=== PATIENT | female | born 1950 | race Caucasian/White ===

== ENCOUNTER 2021-12-01 19:44 | Emergency (ER) | payer MEDICARE, SELFPAY ==
--- NOTE | ~2021-12-01 | CT_ITS ---
EXAMINATION: CT HEAD WITHOUT CONTRAST CT CERVICAL SPINE WITHOUT CONTRAST CLINICAL INFORMATION: Multiple falls COMPARISON: None. TECHNIQUE: Multidetector CT imaging of the head and cervical spine was performed without the use of intravenous contrast. Multiplanar reformats are reviewed. This CT examination was performed using dose optimization techniques as appropriate, variously including the following: *Automated exposure control *Adjustment of mA and/or kV according to patient size (this includes techniques or standardized protocols for targeted exams where dose is matched to indication/reason for exam; i.e. extremities or head) *Use of iterative reconstruction technique DLP: 921c mGy-cm. FINDINGS: There is no evidence of acute intracranial hemorrhage or territorial infarction. No abnormal mass effect or midline shift is seen. [place] to white matter differentiation is well preserved. No extra-axial fluid collections are identified. Mild generalized brain parenchymal volume loss. No this portion ventriculomegaly. Mild patchy subcortical and periventricular white matter low-attenuation changes statistically relates to small vessel ischemic disease. There are what likely represent a few small calcified meningiomas along the bilateral convexities. Cavernous carotid calcifications. The osseous structures and soft tissues are normal. The mastoid air cells and visualized portions of the paranasal sinuses are well-aerated. Atlantooccipital alignment is maintained. The vertebral bodies and posterior elements align normally. No acute fracture or subluxation. Vertebral body heights are maintained. Small endplate osteophytes present at C4-C5 and C5-C6 with accompanying loss of disc space height and uncovertebral arthrosis. Facet arthropathy throughout cervical spine, most notably at C2-C3, worse on the right associated with 3 mm anterolisthesis of C2 on C3. The paraspinal soft tissues are unremarkable. The imaged lung apices are clear CT/CT cervical spine wo IV con IMPRESSION: No acute intracranial pathology. No cervical spine fracture or malalignment.
--- NOTE | ~2021-12-01 | XR_ITS ---
EXAMINATION: XR HIP, LEFT CLINICAL INFORMATION: Multiple falls COMPARISON: None TECHNIQUE: Frontal view the pelvis with 2 views of the left hip. FINDINGS: Femoral heads are well-seated within their respected acetabula. I do not appreciate any cortical disruption or trabecular irregularity to suggest underlying fracture. Bowel gas pattern unremarkable. Mild degenerative changes in the pubic symphysis and lower lumbar spine. XR/XR hip LT w PEL1V IMPRESSION: No acute fracture or dislocation.
[2021-12-01 20:26] VITALS: BP 126/59; PULSE 68; RESP 18; TEMP 36.9; O2SAT 98
--- NOTE | 2021-12-01 20:33 | ED_ITS ---
HPI - General Adult General Chief complaint: Altered Mental Status Stated complaint: FALL DURING LONG WALK TODAY,H/O DEMENTIA Time Seen by Provider: 12/01/21 20:23 Source: patient Mode of arrival: ambulatory Limitations: no limitations History of Present Illness HPI narrative: Patient comes in the emergency room by EMS. Patient has history of dementia, lives with her who is her healthcare daycare. Patient states that she fell multiple times today. Patient complaining of left hip pain. Patient is alert and oriented x1 at baseline. According to EMS, the family reports that the patient left the home at 11:00, and at 19:00, patient showed up at her neighbor's house called EMS. It is unknown if patient is on blood thinners. Related Data Allergies Allergy/AdvReac Type Severity Reaction Status Date / Time Unable to Assess Allergy Unverified 12/01/21 20:31 Review of Systems Review of Systems: Constitutional : Denies fever ENT/Mouth : Denies ear pain, denies sore throat Eyes: Denies eye pain Cardiovascular : No Chest Pain, No SOB, No Dyspnea on Exertion, no palpitations Respiratory : Denies dyspnea, no cough Gastrointestinal : No abdominal pain Genitourinary no dysuria Musculoskeletal : Complaining of left hip pain Skin : No Skin Lesions, No rash Neuro : No Weakness, No Numbness, No Paresthesias, No Loss of Consciousness, No Dizziness, No Headache Psych : Denies SI or HI Heme/Lymph: No Bruising Endocrine : No Polyuria, No Polydipsia, No Temperature Intolerance [facility] Past Medical History Medical History (Updated 12/02/21 @ 02:10 by Daria Loyola MD) Dementia Social History Social History Alcohol intake: never Patient Tobacco Use Status: Never used Tobacco Use of substances other than those prescribed or required for medical reasons: No Advance Directives: No Advance Directives Information Provided: No Physical Exam ED Vital Signs: Vital Signs - 24 hr 12/01/21 20:26 12/02/21 00:22 Temperature 98.4 F 98.1 F Pulse Rate 68 64 Respiratory Rate 18 12 Blood Pressure 126/59 L 123/55 L Pulse Oximetry 98 99 BMI result Body Mass Index 21.2 Const Other: Appearance: Alert. Oriented X1. No acute distress. Patient very talkative but does not make sense, Eyes: Pupils equal, round and reactive to light. ENT: Pharynx normal. Neck: Normal inspection. Neck supple. No lymph nodes noted. No crepitus CVS: Normal heart rate and rhythm. Pulses normal. Normal S1 and S2 Respiratory: No respiratory distress. Breath sounds normal. No Wheezing. No rales Abdomen: Soft and nontender. No rigidity. No distention. Skin: Skin warm and dry. Normal skin color. Normal skin turgor. Extremities: No lower extremity edema patient has full range of motion at the hips, knees and ankles Neuro: Oriented X 1. Moving all extremities. No slurred speech. CN 2 through 12 grossly intact Psych: calm, cooperative Course Course Course Narrative: Patient had a few low blood pressure reads. However, it was noted that the patient's cuff for blood pressure is too big for her. The correct cuff was put in patient's arm, blood pressure 124 systolic. Patient's oxygen saturation remained at 90-92% on 15 L on a non-rebreather. Patient was switched to high-flow, 40 L at 40%, oxygen saturation 92%. Patient seems comfortable. I discussed the CT scan with the patient and her . No acute findings. The feels comfortable taking the patient home. Case Management/Physical therapy offered, patient's who is the healthcare proxy decline. Medical Decision Making Lab Data Result diagrams: 12/01/21 21:21 12/01/21 21:21 Labs: Lab Results 12/01/21 12/01/21 12/01/21 Range/Units 21:21 21:21 21:21 WBC 12.6 H (4.8-10.8) X10*3/uL RBC 4.15 L (4.20-5.50) X10*6/uL Hgb 12.5 (12.0-16.0) g/dl Hct 38.2 (37.0-47.0) % MCV 92.0 (80.0-98.0) fL MCH 30.1 (27.0-33.0) pg MCHC 32.7 (31.0-35.0) g/dl RDW 15.0 (11.0-16.0) % Plt Count 239 (160-400) X10*3/uL MPV 11.3 (9.4-12.3) fL Immature Gran % (Auto) 0.3 (0.0-0.4) % Neut % (Auto) 77.0 H (45-73) % Lymph % (Auto) 12.6 L (20-40) % [place] % (Auto) 9.6 (2-11) % Eos % (Auto) 0.1 (0-4) % Baso % (Auto) 0.4 (0-2) % Lymph # (Auto) 1.6 (1.2-4.9) X10*3/uL [place] # (Auto) 1.2 (0.1-1.2) X10*3/uL Eos # (Auto) 0.0 (0.0-0.4) X10*3/uL Baso # (Auto) 0.1 (0.0-0.2) X10*3/uL Abs Immat Gran (auto) 0.04 H (0.00-0.03) X10*3/uL Absolute Neuts (auto) 9.7 H (2.0-8.3) x10*3/uL Absolute Nucleated RBC 0.000 (0.0-0.012) X10*3/uL Nucleated RBC % (auto) 0.0 (0.0-0.2) /100WBC PT (9.9-13.0) SEC INR (0.9-1.1) Sodium 141 (135-145) mmol/L Potassium 4.5 (3.3-5.1) mmol/L Chloride 106 (96-108) mmol/L Carbon Dioxide 25 (22-29) mmol/L Anion Gap 15 (12-20) BUN 20 H (9-16) mg/dL Creatinine 0.91 (0.5-1.4) mg/dL Estim Creat Clear Calc 41.4 Estimated GFR 60 Random Glucose 91 (60-115) mg/dL Calcium 9.9 (8.4-10.2) mg/dL Total Bilirubin 0.7 (0.0-1.0) mg/dL Direct Bilirubin 0.2 (0.0-0.5) mg/dL AST 36 H (5-31) U/L ALT 41 H (0-31) U/L Alkaline Phosphatase 129 H (39-117) U/L Troponin I High Sens 10.1 (<3.5-17.0) ng/L Total Protein 6.6 (6.5-8.0) g/dL Albumin 4.1 (3.5-5.0) g/dL Urine Color Urine Appearance Urine pH (5.0-8.0) Ur Specific [place] (1.005-1.025) Urine Protein (NEG-TRACE) MG/DL Urine Glucose (UA) (NEG) MG/DL Urine Ketones (NEG) MG/DL Urine Blood (NEG) Urine Nitrite (NEG) Ur Leukocyte Esterase (NEG) COVID-19 (RUTHY) (Negative) COVID-19 Clin Com 12/01/21 12/01/21 12/01/21 Range/Units 21:21 21:21 21:40 WBC (4.8-10.8) X10*3/uL RBC (4.20-5.50) X10*6/uL Hgb (12.0-16.0) g/dl Hct (37.0-47.0) % MCV (80.0-98.0) fL MCH (27.0-33.0) pg MCHC (31.0-35.0) g/dl RDW (11.0-16.0) % Plt Count (160-400) X10*3/uL MPV (9.4-12.3) fL Immature Gran % (Auto) (0.0-0.4) % Neut % (Auto) (45-73) % Lymph % (Auto) (20-40) % [place] % (Auto) (2-11) % Eos % (Auto) (0-4) % Baso % (Auto) (0-2) % Lymph # (Auto) (1.2-4.9) X10*3/uL [place] # (Auto) (0.1-1.2) X10*3/uL Eos # (Auto) (0.0-0.4) X10*3/uL Baso # (Auto) (0.0-0.2) X10*3/uL Abs Immat Gran (auto) (0.00-0.03) X10*3/uL Absolute Neuts (auto) (2.0-8.3) x10*3/uL Absolute Nucleated RBC (0.0-0.012) X10*3/uL Nucleated RBC % (auto) (0.0-0.2) /100WBC PT 10.6 (9.9-13.0) SEC INR 0.9 (0.9-1.1) Sodium (135-145) mmol/L Potassium (3.3-5.1) mmol/L Chloride (96-108) mmol/L Carbon Dioxide (22-29) mmol/L Anion Gap (12-20) BUN (9-16) mg/dL Creatinine (0.5-1.4) mg/dL Estim Creat Clear Calc Estimated GFR Random Glucose (60-115) mg/dL Calcium (8.4-10.2) mg/dL Total Bilirubin (0.0-1.0) mg/dL Direct Bilirubin (0.0-0.5) mg/dL AST (5-31) U/L ALT (0-31) U/L Alkaline Phosphatase (39-117) U/L Troponin I High Sens (<3.5-17.0) ng/L Total Protein (6.5-8.0) g/dL Albumin (3.5-5.0) g/dL Urine Color YELLOW Urine Appearance HAZY Urine pH 7.5 (5.0-8.0) Ur Specific [place] 1.020 (1.005-1.025) Urine Protein TRACE (NEG-TRACE) MG/DL Urine Glucose (UA) NEG (NEG) MG/DL Urine Ketones NEG (NEG) MG/DL Urine Blood NEG (NEG) Urine Nitrite NEG (NEG) Ur Leukocyte Esterase NEG (NEG) COVID-19 (RUTHY) Negative (Negative) COVID-19 Clin Com See Note Imaging Data Hip x-ray: Radiologist's impression: FINDINGS: Femoral heads are well-seated within their respected acetabula. I do not appreciate any cortical disruption or trabecular irregularity to suggest underlying fracture. Bowel gas pattern unremarkable. Mild degenerative changes in the pubic symphysis and lower lumbar spine. XR/XR hip LT w PEL1V IMPRESSION: No acute fracture or dislocation. Head and cervical spine CT: Radiologist's impression: FINDINGS: There is no evidence of acute intracranial hemorrhage or territorial infarction. No abnormal mass effect or midline shift is seen. R[place] to white matter differentiation is well preserved. No extra-axial fluid collections are identified. Mild generalized brain parenchymal volume loss. No this portion ventriculomegaly. Mild patchy subcortical and periventricular white matter low-attenuation changes statistically relates to small vessel ischemic disease. There are what likely represent a few small calcified meningiomas along the bilateral convexities. Cavernous carotid calcifications. The osseous structures and soft tissues are normal. The mastoid air cells and visualized portions of the paranasal sinuses are well-aerated. Atlantooccipital alignment is maintained. The vertebral bodies and posterior elements align normally. No acute fracture or subluxation. Vertebral body heights are maintained. Small endplate osteophytes present at C4-C5 and C5-C6 with accompanying loss of disc space height and uncovertebral arthrosis. Facet arthropathy throughout cervical spine, most notably at C2-C3, worse on the right associated with 3 mm anterolisthesis of C2 on C3. The paraspinal soft tissues are unremarkable. The imaged lung apices are clear ? CT/CT cervical spine wo con IMPRESSION: No acute intracranial pathology. No cervical spine fracture or malalignment. Discharge Plan Discharge Clinical Impression: Dementia Patient Disposition: Home, Self-Care Instructions: Dementia (ED) Additional Instructions: Please follow-up with your primary care physician tomorrow. If you have any worsening or new symptoms, please return to the emergency room or call 911
[2021-12-01 20:39] VITALS: BP 130/70; PULSE 76; O2SAT 98; BMI 21.2
--- NOTE | 2021-12-01 20:55 | ECG_ITS ---
Test Reason : FALL Blood Pressure : / mmHG Vent. Rate : 067 BPM Atrial Rate : 067 BPM P-R Int : 172 ms QRS Dur : 070 ms QT Int : 436 ms P-R-T Axes : 068 021 064 degrees QTc Int : 460 ms Normal sinus rhythm Normal ECG No previous ECGs available Referred By: Daria Loyola Electronically Signed By:
[2021-12-01 21:26] LABS: MANUAL DIFF FLAG NO
[2021-12-01 21:28] LABS: Basophils Absolute Auto 0.1 X10*3/uL (0.0-0.2); Basophils Percent Auto 0.4 % (0-2); Eosinophils Percent Auto 0.1 % (0-4); Hematocrit 38.2 % (37.0-47.0); Hemoglobin 12.5 g/dl (12.0-16.0); Imm Gran Abs Auto 0.04 X10*3/uL (0.00-0.03); Imm Gran Pct Auto 0.3 % (0.0-0.4); Lymphocytes Absolute Auto 1.6 X10*3/uL (1.2-4.9); Lymphocytes Percent Auto 12.6 % (20-40); Mean Corpuscular HGB Conc 32.7 g/dl (31.0-35.0); Mean Corpuscular Hemoglobin 30.1 pg (27.0-33.0); Mean Platelet Volume 11.3 fL (9.4-12.3); Monocytes Absolute Auto 1.2 X10*3/uL (0.1-1.2); Monocytes Percent Auto 9.6 % (2-11); Neutrophils Absolute Auto 9.7 x10*3/uL (2.0-8.3); Platelet Count 239 X10*3/uL (160-400); Red Blood Count 4.15 X10*6/uL (4.20-5.50); White Blood Count 12.6 X10*3/uL (4.8-10.8)
[2021-12-01 21:35] LABS: INTERNATIONAL NORM RATIO 0.9 (0.9-1.1); Prothrombin Time 10.6 SEC (9.9-13.0)
[2021-12-01 21:41] LABS: COVID-19 Test Negative (Negative)
[2021-12-01 21:47] LABS: Appearance Urine HAZY; Color Urine YELLOW; Glucose Urine UA NEG (NEG); Leukocyte Esterase Urine NEG (NEG); Nitrite Urine NEG (NEG); PH 7.5 (5.0-8.0); Urine Blood NEG (NEG); Urine Ketones NEG (NEG); Urine Protein TRACE MG/DL (NEG-TRACE)
[2021-12-01 21:50] LABS: Alanine Aminotransferase 41 U/L (0-31); Albumin Level 4.1 g/dL (3.5-5.0); Alkaline Phosphatase 129 U/L (39-117); Anion Gap 15 (12-20); Aspartate Amino Transferase 36 U/L (5-31); Bilirubin Direct 0.2 mg/dL (0.0-0.5); Bilirubin Total 0.7 mg/dL (0.0-1.0); Blood Urea Nitrogen 20 mg/dL (9-16); Calcium 9.9 mg/dL (8.4-10.2); Carbon Dioxide 25 mmol/L (22-29); Chloride 106 mmol/L (96-108); Creatinine Clr Calc Pharmacy 41.4; Estimated Glomerular Filt Rate 60; Glucose Random 91 mg/dL (60-115); Potassium 4.5 mmol/L (3.3-5.1); Sodium 141 mmol/L (135-145); Total Protein 6.6 g/dL (6.5-8.0)
[2021-12-01 21:54] LABS: Troponin-I High Sensitivity 10.1 ng/L (<3.5-17.0)
[2021-12-02 00:22] VITALS: BP 123/55; PULSE 64; RESP 12; TEMP 36.7; O2SAT 99
[2021-12-02] MEDS: cefTRIAXone sodium 1 GM in 0.9 % Sodium Chloride 50 ML IV (02:23)
[2021-12-02] MEDS: Azithromycin 500 MG in 0.9 % Sodium Chloride 250 ML 125 MG IV (02:27)
[2021-12-02 02:31] VITALS: BP 119/57; PULSE 63; RESP 14; O2SAT 100
[2021-12-02 03:35] VITALS: BP 110/63; PULSE 65; RESP 16; O2SAT 98
== END 2021-12-02 03:46 | disposition home or self-care (01) ==
PROVIDERS: Emergency Provider Emergency Medicine; PCP Family Medicine
DX: F03.90 Unspecified dementia, unspecified severity, without behavioral disturbance, psychotic disturbance, mood disturbance, and anxiety (principal); R51.9 Headache, unspecified; M54.2 Cervicalgia; M25.552 Pain in left hip; Z20.822 Contact with and (suspected) exposure to COVID-19; Z79.899 Other long term (current) drug therapy
CPT/HCPCS: 36415; 70450; 72125; 73502; 80048; 80076; 81003; 84484; 85025; 85610; 87635; 93005; 96365; 96367; 99284; 99285; J0456; J0696

== ENCOUNTER 2022-02-01 18:30 | Emergency (ER) | payer MEDICARE, SELFPAY ==
--- NOTE | ~2022-02-01 | CT_ITS ---
EXAMINATION: CT BRAIN AND CT CERVICAL SPINE WITHOUT CONTRAST. CLINICAL INFORMATION: Status post fall. Pain COMPARISON: None TECHNIQUE: 5 mm thin axial and reformatted 2 mm thin sagittal and coronal images of brain were obtained. Subsequently axial 3 mm thin and reformatted 2 mm thin sagittal coronal images of cervical spine were obtained. DLP [id number] FINDINGS: Brain: There is no acute intra-axial, extra-axial bleed, masses or midline shift. There is no acute infarction evolution. The lateral ventricles are symmetrical in size and configuration with mild enlargement. Mild periventricular hypodensity seen in both cerebral hemispheres. There is anterior midline falx calcification. No abnormality seen in the posterior fossa. Bone windows reveal no calvarial abnormality. Bilateral paranasal sinuses and mastoid air cells are well-aerated. Cervical spine: There is a normal cervical lordosis with grade 1 retrolisthesis C5 over C6. Rest of ureteral or alignment is normal. There is loss of C4-C5 and C5-C6 disc heights. There is mild narrowing of bilateral C5-C6 and left C4-C5 neural foramina from uncovertebral hypertrophic changes. The craniovertebral junction and the C1-C2 alignment is normal. There is no visible acute fracture, dislocation or subluxation seen.. The prevertebral and paravertebral soft tissues are normal. The airway is widely patent. CT/CT cervical spine wo con IMPRESSION: No acute intracranial process seen. There is age-related cerebral volume loss. There is grade 1 retrolisthesis C5 over C6 with degenerative disc changes C4-C5, C5-C6 disc levels and mild ventral spondylosis at the C4-C5 disc level. Mild bilateral narrowing of C5-C6 and left C4-C5 neural foramina is noted. No acute fracture or dislocation seen.
[2022-02-01 18:45] VITALS: BP 101/53; BP 111/53; PULSE 61; PULSE 69; RESP 16; TEMP 36.7; O2SAT 100; O2SAT 96; BMI 27.4
--- NOTE | 2022-02-01 18:52 | ECG_ITS ---
Test Reason : FALL Blood Pressure : / mmHG Vent. Rate : 070 BPM Atrial Rate : 070 BPM P-R Int : 168 ms QRS Dur : 072 ms QT Int : 434 ms P-R-T Axes : 071 033 087 degrees QTc Int : 468 ms Normal sinus rhythm Low voltage QRS Borderline ECG No previous ECGs available Referred By: Neo Kunz Electronically Signed By:DIO SINGH MD
--- NOTE | 2022-02-01 18:59 | ED.FALL ---
HPI - Fall General Chief Complaint: Fall Stated Complaint: Fall Time Seen by Provider: 02/01/22 18:55 Source: patient Mode of arrival: ambulatory Limitations: no limitations History of Present Illness HPI Narrative: Patient is 71 years old with history of significant dementia was walking with her has been turned to 1 side and patient went to the other car and fell down which was unwitnessed by the no change in mental status the patient was very weak and had difficulty in standing her up no noticeable injuries patient denies any complaint Related Data Allergies Allergy/AdvReac Type Severity Reaction Status Date / Time Unable to Assess Allergy Unverified 12/01/21 20:31 Review of Systems Review of Systems: Yes all other systems are reviewed and are negative [facility] Past Medical History Medical History Dementia Social History Social History Alcohol intake: never Patient Tobacco Use Status: Never used Tobacco Advance Directives: No Physical Exam Vital Signs: Vital Signs: Last Vital Signs Temp 98.1 F 02/01/22 18:45 Pulse 69 02/01/22 18:45 Resp 16 02/01/22 18:45 BP 111/53 L 02/01/22 18:45 Pulse Ox 96 02/01/22 18:45 O2 Del Method 02/01/22 18:45 BMI result Body Mass Index 27.4 Appearance: Alert. And awake at her baseline. No acute distress. Eyes: PERRLA, No Nystagmus ENT: Pharynx normal. Oral Mucosa moist Neck: Normal inspection. Neck supple. CVS: Normal heart rate and rhythm. Pulses normal. Respiratory: No respiratory distress. Equal air entry bilateral, no wheezing/rales/rhonchi Abdomen: Soft and nontender. Bowel sounds are present, no mass palpable, no CVA tenderness Skin: Skin warm and dry. Normal skin color. Normal skin turgor. Extremities: No lower extremity edema. No calf tenderness Neuro: Oriented X 1. No motor deficit. No sensory deficit.No cerebellar signs , cranial nerves II-XII intact MDM - Fall MDM Narrative Medical decision making narrative: Patient with mechanical fall workup is negative the patient ambulatory in the ER family advised to have more precautions Lab Data Attestation: I reviewed the patient's lab results. Result diagrams: 02/01/22 19:02 02/01/22 19:02 Labs: Lab Results 02/01/22 02/01/22 02/01/22 Range/Units 19:00 19:02 19:02 WBC 9.0 (4.8-10.8) X10*3/uL RBC 3.99 L (4.20-5.50) X10*6/uL Hgb 12.2 (12.0-16.0) g/dl Hct 37.1 (37.0-47.0) % MCV 93.0 (80.0-98.0) fL MCH 30.6 (27.0-33.0) pg MCHC 32.9 (31.0-35.0) g/dl RDW 14.1 (11.0-16.0) % Plt Count 254 (160-400) X10*3/uL MPV 11.0 (9.4-12.3) fL Immature Gran % (Auto) 0.2 (0.0-0.4) % Neut % (Auto) 68.1 (45-73) % Lymph % (Auto) 21.6 (20-40) % [place] % (Auto) 8.5 (2-11) % Eos % (Auto) 1.0 (0-4) % Baso % (Auto) 0.6 (0-2) % Lymph # (Auto) 2.0 (1.2-4.9) X10*3/uL [place] # (Auto) 0.8 (0.1-1.2) X10*3/uL Eos # (Auto) 0.1 (0.0-0.4) X10*3/uL Baso # (Auto) 0.1 (0.0-0.2) X10*3/uL Abs Immat Gran (auto) 0.02 (0.00-0.03) X10*3/uL Absolute Neuts (auto) 6.2 (2.0-8.3) x10*3/uL Absolute Nucleated RBC 0.000 (0.0-0.012) X10*3/uL Nucleated RBC % (auto) 0.0 (0.0-0.2) /100WBC Sodium 139 (135-145) mmol/L Potassium 4.0 (3.3-5.1) mmol/L Chloride 103 (96-108) mmol/L Carbon Dioxide 24 (22-29) mmol/L Anion Gap 16 (12-20) BUN 24 H (9-16) mg/dL Creatinine 0.98 (0.5-1.4) mg/dL Estim Creat Clear Calc 43.3 Estimated GFR 56 Random Glucose 148 H (60-115) mg/dL Calcium 8.8 D (8.4-10.2) mg/dL Total Bilirubin 0.4 (0.0-1.0) mg/dL AST 32 H (5-31) U/L ALT 28 (0-31) U/L Alkaline Phosphatase 138 H (39-117) U/L Troponin I High Sens (<3.5-17.0) ng/L Total Protein 6.2 L (6.5-8.0) g/dL Albumin 3.8 (3.5-5.0) g/dL Urine Color Urine Appearance Urine pH (5.0-8.0) Ur Specific [place] (1.005-1.025) Urine Protein (NEG-TRACE) MG/DL Urine Glucose (UA) (NEG) MG/DL Urine Ketones (NEG) MG/DL Urine Blood (NEG) Urine Nitrite (NEG) Ur Leukocyte Esterase (NEG) COVID-19 (RUTHY) Negative (Negative) COVID-19 Clin Com See Note 02/01/22 02/01/22 Range/Units 19:02 20:43 WBC (4.8-10.8) X10*3/uL RBC (4.20-5.50) X10*6/uL Hgb (12.0-16.0) g/dl Hct (37.0-47.0) % MCV (80.0-98.0) fL MCH (27.0-33.0) pg MCHC (31.0-35.0) g/dl RDW (11.0-16.0) % Plt Count (160-400) X10*3/uL MPV (9.4-12.3) fL Immature Gran % (Auto) (0.0-0.4) % Neut % (Auto) (45-73) % Lymph % (Auto) (20-40) % [place] % (Auto) (2-11) % Eos % (Auto) (0-4) % Baso % (Auto) (0-2) % Lymph # (Auto) (1.2-4.9) X10*3/uL [place] # (Auto) (0.1-1.2) X10*3/uL Eos # (Auto) (0.0-0.4) X10*3/uL Baso # (Auto) (0.0-0.2) X10*3/uL Abs Immat Gran (auto) (0.00-0.03) X10*3/uL Absolute Neuts (auto) (2.0-8.3) x10*3/uL Absolute Nucleated RBC (0.0-0.012) X10*3/uL Nucleated RBC % (auto) (0.0-0.2) /100WBC Sodium (135-145) mmol/L Potassium (3.3-5.1) mmol/L Chloride (96-108) mmol/L Carbon Dioxide (22-29) mmol/L Anion Gap (12-20) BUN (9-16) mg/dL Creatinine (0.5-1.4) mg/dL Estim Creat Clear Calc Estimated GFR Random Glucose (60-115) mg/dL Calcium (8.4-10.2) mg/dL Total Bilirubin (0.0-1.0) mg/dL AST (5-31) U/L ALT (0-31) U/L Alkaline Phosphatase (39-117) U/L Troponin I High Sens < 3.5 D (<3.5-17.0) ng/L Total Protein (6.5-8.0) g/dL Albumin (3.5-5.0) g/dL Urine Color YELLOW Urine Appearance CLEAR Urine pH 6.0 (5.0-8.0) Ur Specific [place] <= 1.005 (1.005-1.025) Urine Protein NEG (NEG-TRACE) MG/DL Urine Glucose (UA) NEG (NEG) MG/DL Urine Ketones NEG (NEG) MG/DL Urine Blood NEG (NEG) Urine Nitrite NEG (NEG) Ur Leukocyte Esterase 1+ H (NEG) COVID-19 (RUTHY) (Negative) COVID-19 Clin Com ECG Data Attestation: I personally reviewed and interpreted this ECG as follows: Interpretation: Normal sinus rhythm heart rate 70 beats per minute no acute ST wave changes no acute ischemia Discharge Plan Discharge Clinical Impression: Fall Patient Disposition: Home, Self-Care Instructions: Fall Prevention for Older Adults (ED) Additional Instructions: Care as advised continue your medications Care and caution as advised
[2022-02-01 19:08] LABS: MANUAL DIFF FLAG NO
[2022-02-01 19:16] LABS: Basophils Absolute Auto 0.1 X10*3/uL (0.0-0.2); Basophils Percent Auto 0.6 % (0-2); Eosinophils Absolute Auto 0.1 X10*3/uL (0.0-0.4); Hematocrit 37.1 % (37.0-47.0); Hemoglobin 12.2 g/dl (12.0-16.0); Imm Gran Abs Auto 0.02 X10*3/uL (0.00-0.03); Imm Gran Pct Auto 0.2 % (0.0-0.4); Lymphocytes Percent Auto 21.6 % (20-40); Mean Corpuscular HGB Conc 32.9 g/dl (31.0-35.0); Mean Corpuscular Hemoglobin 30.6 pg (27.0-33.0); Monocytes Absolute Auto 0.8 X10*3/uL (0.1-1.2); Monocytes Percent Auto 8.5 % (2-11); Neutrophils Absolute Auto 6.2 x10*3/uL (2.0-8.3); Neutrophils Percent Auto 68.1 % (45-73); Platelet Count 254 X10*3/uL (160-400); Red Blood Count 3.99 X10*6/uL (4.20-5.50); Red Cell Distribution Width 14.1 % (11.0-16.0)
[2022-02-01 19:25] LABS: COVID-19 Test Negative (Negative)
[2022-02-01 19:34] LABS: Troponin-I High Sensitivity < 3.5 ng/L (<3.5-17.0)
[2022-02-01 19:35] LABS: Alanine Aminotransferase 28 U/L (0-31); Albumin Level 3.8 g/dL (3.5-5.0); Alkaline Phosphatase 138 U/L (39-117); Anion Gap 16 (12-20); Aspartate Amino Transferase 32 U/L (5-31); Bilirubin Total 0.4 mg/dL (0.0-1.0); Blood Urea Nitrogen 24 mg/dL (9-16); Calcium 8.8 mg/dL (8.4-10.2); Carbon Dioxide 24 mmol/L (22-29); Chloride 103 mmol/L (96-108); Creatinine Clr Calc Pharmacy 43.3; Estimated Glomerular Filt Rate 56; Glucose Random 148 mg/dL (60-115); Sodium 139 mmol/L (135-145); Total Protein 6.2 g/dL (6.5-8.0)
[2022-02-01 21:42] LABS: Appearance Urine CLEAR; Color Urine YELLOW; Glucose Urine UA NEG (NEG); Leukocyte Esterase Urine 1+ (NEG); Nitrite Urine NEG (NEG); Specific Gravity - Urine <= 1.005 (1.005-1.025); UACC Culture Trigger YES; Urine Blood NEG (NEG); Urine Ketones NEG (NEG); Urine Protein NEG (NEG-TRACE)
[2022-02-01 22:06] LABS: Bacteria Urine 1+ /LPF; RBC Urine 0 /HPF (0); Squamous Epithelial Cell Urine TRACE /LPF
== END 2022-02-01 22:16 | disposition home or self-care (01) ==
PROVIDERS: Emergency Provider Internal Medicine; PCP Family Medicine
DX: R53.1 Weakness (principal); F03.90 Unspecified dementia, unspecified severity, without behavioral disturbance, psychotic disturbance, mood disturbance, and anxiety; Z91.81 History of falling; Z20.822 Contact with and (suspected) exposure to COVID-19
CPT/HCPCS: 36415; 70450; 72125; 80053; 81001; 84484; 85025; 87086; 87635; 93005; 99283; 99284